=== PATIENT | female | born 1965 ===

== ENCOUNTER 2017-06-20 13:53 | Emergency (ER) | payer OTHER, BC ==
[2017-06-20 13:59] VITALS: BP 110/64; PULSE 60; RESP 18; TEMP 97.4; O2SAT 100
--- NOTE | 2017-06-20 14:53 | ED PDOC ---
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 Patient states she went to grab a tray of medications that was falling, after which she felt pain to the right shoulder, which has been gradually worsening. No direct trauma. She took Motrin 600 mg 1 hour prior to ER visit. Reports she felt nauseous and dizzy secondary to the pain, of which she has had similar episodes with pain in the past. PMD: Dr. Brandon Vázquez MD Past Medical History Reviewed: Historical Data, Nursing Documentation, Vital Signs Vital Signs: Last Vital Signs Temp 97.4 F L 06/20/17 13:58 Pulse 60 06/20/17 13:58 Resp 18 06/20/17 13:58 BP 110/64 06/20/17 13:58 Pulse Ox 100 06/20/17 13:58 - Surgical History Surgical History: Cholecystectomy - Family History Family History: States: Unknown Family Hx - Home Medications Home Medications: Ambulatory Orders Medication Instructions Recorded Cyclobenzaprine [Cyclobenzaprine 10 mg PO TID PRN #15 tab 06/20/17 HCl] Naproxen [Naprosyn] 500 mg PO BID PRN #15 tablet 06/20/17 - Allergies Allergies/Adverse Reactions: Allergies Allergy/AdvReac Type Severity Reaction Status Date / Time No Known Allergies Allergy Verified 06/20/17 13:55 Review of Systems ROS Statement: Except As Marked, All Systems Reviewed And Found Negative Gastrointestinal: Positive for: Nausea. Negative for: Vomiting Musculoskeletal: Positive for: Shoulder Pain (right) Neurological: Positive for: Dizziness. Negative for: Weakness, Numbness Physical Exam - Reviewed Nursing Documentation Reviewed: Yes Vital Signs Reviewed: Yes - Physical Exam Appears: Positive for: Non-toxic, No Acute Distress Head Exam: Positive for: ATRAUMATIC, NORMAL INSPECTION, NORMOCEPHALIC Skin: Positive for: Normal Color, Warm, Dry Eye Exam: Positive for: EOMI, Normal appearance, PERRL Neck: Positive for: Normal, Painless ROM Pulses-Radial (L): 2+ Pulses-Radial (R): 2+ Extremity: Positive for: Normal ROM (with full ROM of shoulder), Tenderness (to the right shoulder distally and to the right upper arm), Capillary Refill (< 2 sec), Other (Sensation intact). Negative for: Deformity, Swelling Neurologic/Psych: Positive for: Alert, Oriented - ECG O2 Sat by Pulse Oximetry: 100 (RA) Pulse Ox Interpretation: Normal Medical Decision Making Medical Decision Making: Time: 14:28 Initial Impression: Right shoulder injury Initial Plan: * X-Ray Right Shoulder * Reevaluation Time: 15:15 Shoulder X-Ray: FINDINGS: BONES: Bone alignment and mineralization are normal. There is no acute displaced fracture or bone destruction. JOINTS: Normal. Glenohumeral and acromioclavicular joints preserved. No osteoarthritis. SOFT TISSUES: There are lobular calcifications posterolateral to the greater tuberosity of the humerus. OTHER FINDINGS: None. IMPRESSION: Findings are most compatible with calcific tendinitis. No acute fracture or dislocation. Clinical Impression: Calcific tendinitis Time: 15:31 Will discharge home with prescriptions for Naproxen and Cyclobenzaprine. Patient is to follow up with [facility]. Scribe Attestation: Documented by Hilary Chowdary, acting as a scribe for Ashley Noe MD Provider Scribe Attestation: All medical record entries made by the Scribe were at my direction and personally dictated by me. I have reviewed the chart and agree that the record accurately reflects my personal performance of the history, physical exam, medical decision making, and the department course for this patient. I have also personally directed, reviewed, and agree with the discharge instructions and disposition. Disposition - Clinical Impression Clinical Impression: Calcific tendinitis, Shoulder strain - Patient ED Disposition Is Patient to be Admitted: No Counseled Patient/Family Regarding: Studies Performed, Diagnosis, Need For Followup, Rx Given - Disposition Disposition: Routine/Home Disposition Time: 15:31 Condition: STABLE Additional Instructions: FOLLOW-UP WITH [facility]. Prescriptions: Cyclobenzaprine [Cyclobenzaprine HCl] 10 mg PO TID PRN #15 tab PRN Reason: Pain Naproxen [Naprosyn] 500 mg PO BID PRN #15 tablet PRN Reason: Pain, Moderate (4-7) Instructions: Muscle Strain (ED), Calcific Tendinitis (ED) Forms: [employer] (Upper Sorbian)
--- NOTE | 2017-06-20 15:17 | RAD ---
PROCEDURE: Radiographs of the Right Shoulder HISTORY: Shoulder injury COMPARISON: No prior. FINDINGS: BONES: Bone alignment and mineralization are normal. There is no acute displaced fracture or bone destruction. JOINTS: Normal. Glenohumeral and acromioclavicular joints preserved. No osteoarthritis. SOFT TISSUES: There are lobular calcifications posterolateral to the greater tuberosity of the humerus. OTHER FINDINGS: None. IMPRESSION: Findings are most compatible with calcific tendinitis. No acute fracture or dislocation.
== END 2017-06-20 16:34 | disposition home or self-care (01) ==
LOC: H.ER 13:53
DX: S46.911A Strain of unspecified muscle, fascia and tendon at shoulder and upper arm level, right arm, initial encounter (principal); M75.31 Calcific tendinitis of right shoulder
CPT/HCPCS: 73030; 96372; 99283; J1885

== ENCOUNTER 2017-08-07 07:54 | Emergency (ER) | payer BC, OTHER ==
[2017-08-07 07:58] VITALS: BMI 27.6
[2017-08-07 08:00] VITALS: BP 128/79; PULSE 91; RESP 16; TEMP 98.7; O2SAT 99
[2017-08-07] MEDS ORDERED: Sodium Chloride 0.9% 1,000 ML IV STA ×3 (08:53→11:56)
[2017-08-07 09:11] LABS: HEMOGLOBIN 14.9 g/dL (12.0-16.0); LYMPH # 0.9 K/uL (1.0-4.3); MEAN CELL VOLUME 90.8 fl (81.0-99.0); MEAN CORPUSCULAR HEMOGLOBIN 29.8 pg (27.0-31.0); MEAN CORPUSCULAR HGB CONC 32.8 g/dL (33.0-37.0); MEAN PLATELET VOLUME 8.8 fl (7.2-11.7); MONO # 0.7 K/uL (0.0-0.8); MONO % 10.8 % (0.0-10.0); NEUT # 5.1 K/uL (1.8-7.0); NEUT % 76.2 % (50.0-75.0); NRBC % 0.1 % (0.0-0.0); RED CELL DISTRIBUTION WIDTH 12.7 % (11.5-14.5); WHITE BLOOD COUNT 6.6 K/uL (4.8-10.8)
--- NOTE | 2017-08-07 09:23 | ED PDOC ---
HPI: Abdomen Time Seen by Provider: 08/07/17 08:40 Chief Complaint (Nursing): GI Problem Chief Complaint (Provider): Abdominal pain History Per: Patient History/Exam Limitations: no limitations Onset/Duration Of Symptoms: Days (4) Outside of [place] travel?: No Current Symptoms Are (Timing): Still Present Location Of Pain/Discomfort: Epigastric Additional Complaint(s): 52yo female with history of gastritis, cholecystectomy, presents to ED for evaluation of epigastric pain associated with nausea, vomiting and diarrhea since the past 4 days. Patient denies any fever, bloody stools, weakness. She denies any nausea or vomiting today. No other medical complaints. Past Medical History Reviewed: Historical Data, Nursing Documentation, Vital Signs Vital Signs: Last Vital Signs Temp 98.7 F 08/07/17 07:59 Pulse 91 H 08/07/17 07:59 Resp 16 08/07/17 07:59 BP 128/79 08/07/17 07:59 Pulse Ox 99 08/07/17 09:24 - Medical History PMH: Gastritis - Surgical History Surgical History: Cholecystectomy - Family History Family History: States: Unknown Family Hx - Home Medications Home Medications: Ambulatory Orders Medication Instructions Recorded Cyclobenzaprine [Cyclobenzaprine 10 mg PO TID PRN #15 tab 06/20/17 HCl] Naproxen [Naprosyn] 500 mg PO BID PRN #15 tablet 06/20/17 Atropine/Diphenoxylate [Lonox 1 tab PO Q8 #10 tab 08/07/17 0.025 MG-2.5 MG] Ondansetron [Zofran] 4 mg PO Q8H #10 tab 08/07/17 - Allergies Allergies/Adverse Reactions: Allergies Allergy/AdvReac Type Severity Reaction Status Date / Time No Known Allergies Allergy Verified 08/07/17 08:07 Review of Systems ROS Statement: Except As Marked, All Systems Reviewed And Found Negative Constitutional: Negative for: Fever Gastrointestinal: Positive for: Nausea, Vomiting, Abdominal Pain. Negative for : Hematochezia Physical Exam - Reviewed Nursing Documentation Reviewed: Yes Vital Signs Reviewed: Yes - Physical Exam Appears: Positive for: Non-toxic, No Acute Distress Head Exam: Positive for: ATRAUMATIC, NORMAL INSPECTION, NORMOCEPHALIC Skin: Positive for: Normal Color Eye Exam: Positive for: Normal appearance, EOMI, PERRL ENT: Positive for: Other (dry mucus membranes) Neck: Positive for: Normal, Painless ROM, Supple Cardiovascular/Chest: Positive for: Regular Rate, Rhythm Respiratory: Positive for: Normal Breath Sounds. Negative for: Respiratory Distress Gastrointestinal/Abdominal: Positive for: Soft, Tenderness (mild epigastric tenderness). Negative for: Guarding, Rebound Neurologic/Psych: Positive for: Alert, Oriented. Negative for: Motor/Sensory Deficits - Laboratory Results Result Diagrams: 08/07/17 09:00 08/07/17 09:00 - ECG O2 Sat by Pulse Oximetry: 99 (RA) Pulse Ox Interpretation: Normal - Progress Re-evaluation Time: 13:21 Condition: Improved Medical Decision Making Medical Decision Making: Impression: Abdominal pain Plan: -- Labs -- IV Fluids -- Pepcid 20 mg IVP Scribe Attestation: Documented by Deidre Arellano, acting as a scribe for Sj Perdomo MD. Provider Scribe Attestation: All medical record entries made by the Scribe were at my direction and personally dictated by me. I have reviewed the chart and agree that the record accurately reflects my personal performance of the history, physical exam, medical decision making, and the department course for this patient. I have also personally directed, reviewed, and agree with the discharge instructions and disposition. Disposition - Clinical Impression Clinical Impression: Gastroenteritis - Patient ED Disposition Is Patient to be Admitted: No Counseled Patient/Family Regarding: Studies Performed, Diagnosis, Need For Followup, Rx Given - Disposition Referrals: [facility] [Outside] Disposition: Routine/Home Disposition Time: 13:21 Condition: FAIR Prescriptions: Atropine/Diphenoxylate [Lonox 0.025 MG-2.5 MG] 1 tab PO Q8 #10 tab Ondansetron [Zofran] 4 mg PO Q8H #10 tab Instructions: Gastroenteritis (ED) Forms: [employer] ([place]er)
[2017-08-07 09:31] LABS: ALB/GLOB RATIO 1.3 (1.0-2.1); ALBUMIN 4.4 g/dL (3.5-5.0); ALT/SGPT 52 U/L (9-52); AST/SGOT 44 U/L (14-36); BLOOD UREA NITROGEN 9 mg/dl (7-17); CALCIUM 9.6 mg/dL (8.4-10.2); GFR AFRICAN-AMERICAN > 60; GFR NON-AFRICAN AMERICAN > 60
[2017-08-07] MEDS ORDERED: Atropine-Diphenoxylate 0.025-2.5 mg Tab PO STA (11:04)
[2017-08-07] MEDS ORDERED: Atropine-Diphenoxylate 0.025-2.5 mg Tab ONE (11:10)
== END 2017-08-07 14:23 | disposition home or self-care (01) ==
LOC: H.ER 07:54
DX: K52.9 Noninfective gastroenteritis and colitis, unspecified (principal)
CPT/HCPCS: 80053; 85025; 96361; 96374; 96375; 99284; J2405; J7040